=== PATIENT | male | born 1990 | race Asian ===

== ENCOUNTER 2019-06-20 10:23 | Outpatient (CLI) | payer BC ==
--- NOTE | 2019-06-20 11:30 | MRI ---
MRI Cervical Spine WO Con HISTORY: Neck pain and radiculopathy. The sided radicular symptoms is not specified. COMPARISON: None. FINDINGS: The vertebral bodies are normal in height. Minimal disc narrowing is seen at C5-6. Cord sig nal change is normal. C2-3: Unremarkable. C3-4: Mild uncovertebral hypertrophic changes on the right are present no significant foraminal narro wing. C4-5: Unremarkable. C5-6: A right paracentral disc protrusion is present. This does impress along the anterior margin of the cord. No foraminal narrowing. C6-7: Unremarkable. C7-T1: Unremarkable. IMPRESSION: Right paracentral disc protrusion at C5-6.
== END 2019-06-20 10:24 | disposition home or self-care (01) ==
LOC: TBSIIMAG 10:23
PROVIDERS: ATTEND Neurological Surgery
DX: M50.10 Cervical disc disorder with radiculopathy, unspecified cervical region (principal)
CPT/HCPCS: 72141